=== PATIENT | male | born 1985 | race Caucasian/White ===

== ENCOUNTER 2016-12-31 03:29 | Emergency (ER) | payer BC ==
[~2016-12-31] VITALS: Ht 172.7 cm; Wt 76.2 kg
--- NOTE | 2016-12-31 03:41 | NUR ---
31 yo male BB ; LOWER ABD PAIN SINCE 0200 THAT WOKE HIM UP. pt ambulated to er bed with steayd gait, skin warm and dry, rr even and unlabored. pt gowned, placed on monitor technician. awaiting orders from provider, will continue t omonitor
--- NOTE | 2016-12-31 03:54 | NUR ---
md Dasilva at bed side for eval
[2016-12-31] MEDS ORDERED: DICYCLOMINE HCL 10 MG CAPSULE PO ONE ×2 (04:05→04:30)
[2016-12-31] MEDS ORDERED: DICYCLOMINE HCL INJ 20 MG/2 ML AMPUL IM ONE ×2 (04:12→04:30)
--- NOTE | 2016-12-31 04:15 | NUR ---
18G IV TO LAC SALINE LOCKED PER , BLOOD SAMPLE SENT TO LAB. PT PLACED ON VEST BUSHELER. VSS.
[2016-12-31 04:35] LABS: BASOPHILS % (AUTO) 0.3 % (0.0-2.0); EOSINOPHILS # (AUTO) 0.5 /CMM (0.0-0.7); EOSINOPHILS % (AUTO) 7.7 % (0.0-6.0); HEMATOCRIT 44 % (39-51); HEMOGLOBIN 14.9 g/dL (13.5-17.5); LYMPHOCYTES # (AUTO) 1.7 /CMM (0.8-4.8); LYMPHOCYTES % (AUTO) 28.9 % (20.0-44.0); MEAN CORPUSCULAR HEMOGLOBIN 31 PG (26.0-33.0); MEAN CORPUSCULAR HGB CONC 34 g/dl (31.0-36.0); MEAN CORPUSCULAR VOLUME 90 fL (80-96); MONOCYTES # (AUTO) 0.4 /CMM (0.1-1.30); MONOCYTES % (AUTO) 7.2 % (2.0-12.0); NEUTROPHILS # (AUTO) 3.3 /CMM (1.8-8.9); NEUTROPHILS % (AUTO) 55.9 % (43.0-81.0); PLATELET COUNT (AUTO) 197 /CMM (150-450); RDW COEFFICIENT OF VARIATION 13.1 (11.5-15.0); RED BLOOD CELL COUNT(AUTO) 4.86 MIL/uL (4.5-6.0); WHITE BLOOD COUNT (AUTO) 5.9 K/uL (4.3-11.0)
[2016-12-31 04:50] LABS: PROTHROMBIN TIME 10.4 SECS (9.5-12.7)
[2016-12-31] MEDS ORDERED: IV NS 0.9% 250 ML IV ONE (04:52)
[2016-12-31] MEDS ORDERED: IOHEXOL-300 100 ML VIAL IV ONE (04:52)
[2016-12-31 04:53] LABS: ALBUMIN 4.1 g/dL (3.4-5.0); BILIRUBIN,DIRECT 0.1 mg/dL (0.0-0.2); BILIRUBIN,TOTAL 0.5 mg/dL (0.2-1.0); CALCIUM, SERUM 9.4 mg/dL (8.5-10.1); POTASSIUM 4.5 mmol/L (3.5-5.1)
[2016-12-31 05:49] VITALS: BP 116/84
--- NOTE | 2016-12-31 05:49 | NUR ---
Patient discharged to home in stable condition. Written and verbal after care instructions given. Patient verbalizes understanding of instruction.IV removed. Catheter intact and site benign. Pressure and 4x4 applied to site. No bleeding noted. pt ambulatory with a steady gait
== END 2016-12-31 05:50 | disposition home or self-care (01) ==
LOC: ER 03:32
DX: R10.30 Lower abdominal pain, unspecified (principal)
CPT/HCPCS: 36415; 74160; 80048; 80076; 83690; 85025; 85730; 99285; A4606; J0500; J7050; Q9967; Z7610

== ENCOUNTER 2017-12-21 02:43 | Emergency (ER) | payer SELFPAY ==
[~2017-12-21] VITALS: Ht 172.7 cm; Wt 74.8 kg
[2017-12-21 02:55] VITALS: BP 126/79
--- NOTE | 2017-12-21 03:15 | NUR ---
PHLEBOTOMY BEDASIAE FOR BLOOD DRAW
[2017-12-21 03:28] LABS: BASOPHILS % (AUTO) 0.6 % (0.0-2.0); EOSINOPHILS % (AUTO) 6.5 % (0.0-6.0); HEMATOCRIT 41 % (39-51); HEMOGLOBIN 13.9 g/dL (13.5-17.5); LYMPHOCYTES # (AUTO) 1.3 /CMM (0.8-4.8); LYMPHOCYTES % (AUTO) 23.7 % (20.0-44.0); MEAN CORPUSCULAR HGB CONC 34 g/dl (31.0-36.0); MEAN CORPUSCULAR VOLUME 92 fL (80-96); MONOCYTES # (AUTO) 0.5 /CMM (0.1-1.30); MONOCYTES % (AUTO) 8.5 % (2.0-12.0); NEUTROPHILS # (AUTO) 3.4 /CMM (1.8-8.9); NEUTROPHILS % (AUTO) 60.7 % (43.0-81.0); PLATELET COUNT (AUTO) 199 /CMM (150-450); RDW COEFFICIENT OF VARIATION 12.6 (11.5-15.0); RED BLOOD CELL COUNT(AUTO) 4.45 MIL/uL (4.5-6.0); WHITE BLOOD COUNT (AUTO) 5.6 K/uL (4.3-11.0)
[2017-12-21 03:46] LABS: ALANINE AMINOTRANSFERASE 29 U/L (12-78); ALKALINE PHOSPHATASE 66 U/L (46-116); ASPARTATE AMINOTRANSFERASE 15 U/L (15-37); BILIRUBIN,DIRECT 0.1 mg/dL (0.0-0.2); BILIRUBIN,TOTAL 0.5 mg/dL (0.2-1.0); CALCIUM, SERUM 9.6 mg/dL (8.5-10.1); CARBON DIOXIDE 30 mmol/L (21-32); CHLORIDE 103 mmol/L (98-107); GLUCOSE 110 mg/dL (74-106); POTASSIUM 3.9 mmol/L (3.5-5.1); SODIUM SERUM 140 mmol/L (136-145); TOTAL PROTEIN, SERUM 7.2 g/dL (6.4-8.2); UREA NITROGEN, BLOOD 18 mg/dL (7-18)
[2017-12-21 03:52] LABS: TROPONIN I < 0.017 ng/mL (0.00-0.056)
[2017-12-21 04:30] LABS: D-DIMER 0.24 mg/L(FEU (0.17-0.50); INR 0.96 (0.87-1.13)
[2017-12-21] MEDS ORDERED: IBUPROFEN 400 MG TABLET ONE (04:41)
[2017-12-21] MEDS ORDERED: IBUPROFEN 400 MG TABLET PO ONE (05:00)
== END 2017-12-21 04:44 | disposition home or self-care (01) ==
LOC: ER 02:44
DX: R07.89 Other chest pain (principal); K30 Functional dyspepsia; Z96.612 Presence of left artificial shoulder joint
CPT/HCPCS: 36415; 71045; 80048; 80076; 84484; 85025; 85378; 85730; 93005; 99285; A4606; Z7610